=== PATIENT | male | born 1955 | race Hispanic/Latino ===

== ENCOUNTER 2017-05-26 06:20 | Day surgery (SDC) | payer BC, OTHER ==
[2017-05-25 15:55] VITALS: BP 150/85
[2017-05-25 16:00] LABS: CREATININE 0.9 mg/dL (0.5-1.5); POTASSIUM 3.2 mmol/L (3.5-5.1)
[~2017-05-26] VITALS: Ht 165.1 cm; Wt 93.3 kg
[2017-05-26] VITALS (15 sets, daily range): BP systolic 75–143; BP diastolic 44–84
[~2017-05-26 06:20] MED LIST: AMLO5TAB2 PO; ASPI-1181 PO; METF500T6 PO; POTA-79 PO
[2017-05-26] MEDS ORDERED: WATER FOR INJECTION,STERILE 20 ML VIAL ONE (06:42)
[2017-05-26] MEDS ORDERED: SODIUM CHLORIDE 0.9% 1000ML 1,000 ML IV ONE (06:42)
[2017-05-26] MEDS: CEFAZOLIN SODIUM 1 GM VIAL ONE ×2 (06:45→08:29)
[2017-05-26] MEDS ORDERED: CEFAZOLIN SODIUM 1 GM VIAL ONE (07:50)
[2017-05-26] MEDS ORDERED: PROPOFOL 10 MG/ML 20ML VIAL IV ONE (08:20)
[2017-05-26] MEDS ORDERED: LIDOCAINE PF 2% 5ML ABBOJECT ONE (08:20)
[2017-05-26] MEDS ORDERED: MIDAZOLAM HCL 1 MG/ML 2ML VIAL ONE (08:20)
[2017-05-26] MEDS ORDERED: ONDANSETRON HCL 4 MG/2 ML VIAL ONE (08:20)
[2017-05-26] MEDS ORDERED: GLYCOPYRROLATE 0.2 MG/ML 5 ML VIAL ONE (08:20)
[2017-05-26] MEDS ORDERED: DEXAMETHASONE SOD PHOSPHATE 10MG/ML 1ML VIAL ONE (08:20)
[2017-05-26] MEDS ORDERED: FENTANYL CITRATE PF 50 MCG/1 ML 2ML VIAL ONE (08:21)
[2017-05-26] MEDS ORDERED: BUPIVACAINE/EPI/PF 0.25% 30ML VIAL IJ ONE (08:39)
[2017-05-26] MEDS ORDERED: CEFAZOLIN 3GM /D5W 100ML 100 ML IV ONE (09:00)
== END 2017-05-26 11:05 | disposition home or self-care (01) ==
LOC: DAH 06:20
PROVIDERS: ATTEND Orthopaedic Surgery
DX: L72.0 Epidermal cyst (principal); L92.3 Foreign body granuloma of the skin and subcutaneous tissue; E11.9 Type 2 diabetes mellitus without complications; I10 Essential (primary) hypertension; E66.9 Obesity, unspecified; Z87.442 Personal history of urinary calculi; Z98.890 Other specified postprocedural states; Z83.3 Family history of diabetes mellitus; Z82.49 Family history of ischemic heart disease and other diseases of the circulatory system; Z79.82 Long term (current) use of aspirin; Z68.33 Body mass index [BMI] 33.0-33.9, adult
CPT/HCPCS: 11402; 36415; 80048; 82948 ×2; 88304; A4930; A6207; J0690 ×3; J1100; J2001; J2250; J2405; J2704; J3010; J7030; J3490